=== PATIENT | female | born 1975 ===

== ENCOUNTER 2018-06-07 17:05 | Emergency (ER) | payer MEDICAID, OTHER ==
[2018-06-07 17:22] VITALS: BMI 24.1
[2018-06-07 17:30] VITALS: RESP 18
[2018-06-07 18:49] LABS: BASO # 0.1 K/uL (0.0-0.2); BASO % 0.8 % (0.0-2.0); EOS # 0.1 K/uL (0.0-0.7); EOS % 0.8 % (0.0-4.0); HEMOGLOBIN 11.6 g/dL (11.0-16.0); LYMPH # 1.5 K/uL (1.0-4.3); LYMPH % 16.7 % (20.0-40.0); MEAN CELL VOLUME 90.9 fL (81.0-99.0); MEAN CORPUSCULAR HEMOGLOBIN 30.7 pg (27.0-31.0); MEAN CORPUSCULAR HGB CONC 33.7 g/dL (33.0-37.0); MEAN PLATELET VOLUME 11.5 fL (7.2-11.7); MONO # 0.5 K/uL (0.0-0.8); MONO % 5.2 % (0.0-10.0); NEUT # 6.9 K/uL (1.8-7.0); NEUT % 76.5 % (50.0-75.0); RBC 3.78 Mil/uL (3.80-5.20); RED CELL DISTRIBUTION WIDTH 13.5 % (11.5-14.5)
[2018-06-07 18:52] LABS: HCG,QUALITATIVE URINE NEGATIVE (NEGATIVE)
[2018-06-07 18:55] VITALS: TEMP 99
[2018-06-07 18:57] LABS: SQUAMOUS EPITHIAL 2 /hpf (0-5); URINE BACTERIA OCC (<OCC); URINE BILIRUBIN NEGATIVE (NEGATIVE); URINE BLOOD NEGATIVE (NEGATIVE); URINE CLARITY Clear (Clear); URINE COLOR Yellow (YELLOW); URINE GLUCOSE (UA) NORMAL (Normal); URINE LEUKOCYTE ESTERASE NEG Leu/uL (Negative); URINE PROTEIN NEGATIVE (NEGATIVE); URINE UROBILINOGEN NORMAL mg/dL (0.2-1.0)
[2018-06-07 19:02] LABS: ALB/GLOB RATIO 1.3 (1.0-2.1); ALBUMIN 4.6 g/dL (3.5-5.0); ALT/SGPT 38 U/L (9-52); AST/SGOT 26 U/L (14-36); BLOOD UREA NITROGEN 14 mg/dL (7-17); CALCIUM 9.9 mg/dl (8.6-10.4); GFR NON-AFRICAN AMERICAN > 60
[2018-06-07] MEDS ORDERED: guaiFENesin 100 mg/5 ml Syrup UD PO STA (19:36)
--- NOTE | 2018-06-07 19:39 | C.PDOC ---
History Of Present Illness 42 y/o female presents to the ED complaining of chest pain and back pain for the last week. Associated with a dry non-productive cough. No SOB, dizziness, chills, fever, or other complaints. Patient has hx of psychiatric condition and pneumonia. She reports good compliance with medications. Time Seen by Provider: 06/07/18 19:29 Chief Complaint (Nursing): Chest Pain History Per: Patient History/Exam Limitations: no limitations Onset/Duration Of Symptoms: Days Current Symptoms Are (Timing): Still Present Past Medical History Reviewed: Historical Data, Nursing Documentation, Vital Signs Vital Signs: Last Vital Signs Temp 99.0 F 06/07/18 18:54 Pulse 76 06/07/18 19:48 Resp 18 06/07/18 19:48 BP 105/82 06/07/18 19:48 Pulse Ox 98 06/07/18 19:48 - Medical History PMH: Anxiety, Asthma, Depression, Seizures Denies: Bipolar Disorder, Diabetes, Hepatitis, HIV, HTN, Chronic Kidney Disease, Schizophrenia, Sexually Transmitted Disease - [facility] Procedures PSYCHIAT DRUG THERAP NEC (04/16/15) Family History: States: Unknown Family Hx - Social History Hx Alcohol Use: No Hx Substance Use: No Review Of Systems Constitutional: Negative for: Fever, Chills Eyes: Negative for: Vision Change ENT: Negative for: Ear Pain, Nose Congestion Cardiovascular: Positive for: Chest Pain. Negative for: Palpitations Respiratory: Positive for: Cough. Negative for: Shortness of Breath, Sputum, Wheezing Gastrointestinal: Negative for: Nausea, Vomiting, Abdominal Pain Musculoskeletal: Positive for: Back Pain Neurological: Negative for: Weakness, Dizziness Physical Exam - Physical Exam Appears: Non-toxic, No Acute Distress Skin: Normal Color, Warm, Dry, No Rash Head: Atraumatic, Normacephalic Eye(s): bilateral: Normal Inspection Nose: Normal Oral Mucosa: Moist Neck: Normal ROM Chest: Symmetrical, Tenderness (Digitally and positionally reproducible pain on palpation of right parasternal border, T4-T5), Other (No rash) Cardiovascular: Rhythm Regular, No Murmur Respiratory: Normal Breath Sounds, No Rales, No Rhonchi, No Wheezing Gastrointestinal/Abdominal: Bowel Sounds (active), Soft, No Tenderness, No Distention Extremity: Bilateral: Atraumatic, Normal Color And Temperature, Normal ROM Pulses: Left Dorsalis Pedis: Normal, Right Dorsalis Pedis: Normal Neurological/Psych: Oriented x3, Normal Speech ED Course And Treatment - Laboratory Results Result Diagrams: 06/07/18 18:43 06/07/18 18:43 Lab Interpretation: Normal (ua/trop neg.) Urine POC: Negative ECG: Interpreted By Me ECG Rhythm: Sinus Rhythm ECG Interpretation: Normal Rate From EC O2 Sat by Pulse Oximetry: 97 (RA) Pulse Ox Interpretation: Normal Progress Note: dry non-prod cough x 1-2 weeks. + digitally reproducable R parasternal boarder T4/5. no rash. c/w costochondritis. lungs clear. ekg normal. cardiac w/u neg. Medical Decision Making Medical Decision Making: Plan: Blood work with cardiac enzymes, and urinalysis ordered. Patient treated with PO motrin and robitussin. Labs reviewed and discussed w/ patient. Counseled regarding diagnosis and follow up instructions. Disposition Doctor Will See Patient In The: Office Counseled Patient/Family Regarding: Studies Performed, Diagnosis - Disposition Referrals: Anju Rodrigez MD [Medical Doctor] - Disposition: HOME/ ROUTINE Disposition Time: 19:38 Condition: GOOD Additional Instructions: dolor del pared del pecho: ibuprofeno 400-600 mg cada 6 horas german necessario Tos: Robitussin 100 mg (ashlyn cucharadita) cada 4-6 horas german necessario Sigue usando jernigan bomba del Albuterol german normal. EKG y examenes de la gregorio, todos normales. Instructions: Costochondritis Forms: [facility] (Japanese) Print Language: HONDURAN - Clinical Impression Clinical Impression: Chest wall discomfort, Dry cough - Scribe Statement The provider has reviewed the documentation as recorded by the Scribe (Lisa Kuhn) Provider Attestation: All medical record entries made by the Scribe were at my direction and personally dictated by me. I have reviewed the chart and agree that the record accurately reflects my personal performance of the history, physical exam, medical decision making, and the department course for this patient. I have also personally directed, reviewed, and agree with the discharge instructions and disposition.
[2018-06-07] MEDS ORDERED: guaiFENesin 100 mg/5 ml Syrup UD ONE (19:45)
[2018-06-07 19:50] VITALS: BP 105/82; PULSE 76
[2018-06-07 21:45] VITALS: O2SAT 97
--- NOTE | 2018-06-10 18:45 | CARD ---
APPROVED REPORT Date of service: 06/07/2018 EKG Measurement Heart [id number] CT [id number] <Conclusion> Normal sinus rhythm Normal Electrocardiogram
== END 2018-06-07 19:48 | disposition home or self-care (01) ==
LOC: C.ER 17:05
DX: R07.89 Other chest pain (principal); R05 Cough